=== PATIENT | male | born 1985 | race Caucasian/White ===

== ENCOUNTER 2022-06-26 13:53 | Emergency (ER) | payer BC, SELFPAY ==
[2022-06-26 14:10] VITALS: BP 133/91; PULSE 98; RESP 18; TEMP 36.6; O2SAT 100
--- NOTE | 2022-06-26 14:22 | ED.URI ---
HPI - URI/Sore Throat General Chief Complaint: Upper Respiratory Infection Stated Complaint: Sinus Pressure, Congestion, Fatique Time Seen by Provider: 06/26/22 14:26 Source: patient and RN notes reviewed Mode of arrival: ambulatory Limitations: no limitations History of Present Illness HPI Narrative: 37 y/o male presented for c/o sinus pressure, congestion with post nasal drip, cough and fatigue for 3 days. Started taking Ruhtie D for symptoms. Denies sob, wheezing, n/v/d/f/c. Denies sick contacts. History of seasonal allergies. He is scheduled with pcp 07/04. MD elicited complaint: cough Related Data Allergies Allergy/AdvReac Type Severity Reaction Status Date / Time erythromycin base AdvReac Mild Nausea Verified 06/26/22 14:25 Review of Systems Review of Systems: CONSTITUTIONAL:denies chills, sweats, fever EYES: Denies visual changes, redness, or discharge ENT: Reports rhinorrhea, congestion, sinus pain, denies otalgia, sore throat CARDIOVASCULAR: Denies chest pain, palpitations, edema RESPIRATORY: Reports cough, post nasal drainage. Denies dyspnea GASTROINTESTINAL: Denies abdominal pain, nausea, vomiting, diarrhea SKIN: Denies rash or itching MUSCULOSKELETAL: denies myalgia Exam Narrative: GENERAL: Ill-appearing, nontoxic EYES: conjunctivae clear ENT: Mucous membranes moist. TM pearly leo with dull light reflex bilaterally; no tragal tenderness. Oropharynx erythematous without lesions or exudate, no drooling, no hoarseness, no trismus, uvula midline. CHEST: Clear to auscultation, breath sounds equal. No respiratory distress, speaks in full sentences. HEART: Regular rate and rhythm. No murmur heard. SKIN: Warm, dry, no rash. NEURO: Alert and oriented x3. Course Course Emergency Course: Patient is aware of diagnosis, understands and agrees to treatment plan. Anticipatory guidance given. Patient agrees to follow-up as directed and is aware of reasons to seek care at the emergency department. Portions of this record may have been created with voice recognition software Level of Care: Express Care Visit Vital Signs Vital signs: Vital Signs Temperature 97.8 F 06/26/22 14:10 Pulse Rate 98 06/26/22 14:10 Respiratory Rate 18 06/26/22 14:10 Blood Pressure 133/91 H 06/26/22 14:10 Pulse Oximetry 100 06/26/22 14:10 Oxygen Delivery Room Air 06/26/22 14:10 Temperature 97.8 F 06/26/22 14:10 Pulse Rate 98 06/26/22 14:10 Respiratory Rate 18 06/26/22 14:10 Blood Pressure 133/91 H 06/26/22 14:10 Pulse Oximetry 100 06/26/22 14:10 Oxygen Delivery Room Air 06/26/22 14:10 reviewed MDM - URI/Sore Throat MDM Narrative Medical decision making narrative: covid negative. Result reviewed with pt. advised supportive measures and signs/symptoms to go to the ER. Pt is appropriate for outpt treatment and f/u as scheduled with pcp. Differential Diagnosis Differential diagnosis: Likely upper respiratory infection, sinusitis and viral infection Discharge Plan Discharge Clinical Impression: Upper respiratory infection Patient Disposition: Home, Self-Care Condition: Stable Instructions: Upper Respiratory Infection (ED) Additional Instructions: Your Rapid COVID test was negative today. If you are symptomatic with reason to believe you have COVID-19, there is a high possibility your rapid test may not have detected the virus. You should follow appropriate guidelines regarding quarantine, hand washing, mask wearing, and social distancing Rest, stay hydrated. Tylenol, Flonase/nasal spray, Zyrtec, cough syrup and cold/flu medications for symptoms as needed Follow up with your primary care provider as needed in 1-2 weeks Go to the ER for worsening symptoms or concerns Prescriptions: New benzonatate 200 mg capsule 200 mg PO TID PRN (Reason: cough) Qty: 20 0RF methylprednisolone [Medrol (Helio)] 4 mg tablets,dose pack See Rx Instructions .ROUTE .COMPLEX Qty: 21 0RF
== END 2022-06-26 14:55 | disposition home or self-care (01) ==
PROVIDERS: Emergency Provider Nurse Practitioner Family; PCP Internal Medicine
DX: J06.9 Acute upper respiratory infection, unspecified (principal); Z20.822 Contact with and (suspected) exposure to COVID-19
CPT/HCPCS: 87426; 99213; C9803; G0463

== ENCOUNTER 2023-04-30 14:05 | Emergency (ER) | payer BC, SELFPAY ==
[2023-04-30] VITALS (12 sets, daily range): BP systolic 125–142; BP diastolic 76–93; PULSE 75–86; RESP 14–29; TEMP 36.6; O2SAT 92–100
--- NOTE | ~2023-04-30 | XR_ITS ---
EXAMINATION: XR chest 2V DATE: 04/30/2023 14:39 INDICATION: Midsternal chest pain TECHNIQUE: PA and lateral views of the chest are obtained. COMPARISON: 12/05/2010 FINDINGS: The lungs are free of acute opacities. No pleural effusion or pneumothorax. The cardiomedia stinal silhouette is normal. There are changes of interval plate and screw fixation of the distal lef t clavicle. IMPRESSION: 1. No acute cardiopulmonary abnormality. Reviewed, dictated and finalized at location L.
--- NOTE | 2023-04-30 14:07 | ECG_ITS ---
Measurements Intervals [place] Rate: 80 P: 32 WV: 178 QRS: -15 QRSD: 102 T: 19 QT: 360 QTc: 418 Interpretive Statements SINUS RHYTHM MODERATE VOLTAGE CRITERIA FOR LVH, CONSIDER NORMAL VARIANT [MEETS CRITERIA IN ONE OF: R(aVL), S(V1), R(V5), R(V5/V6)+S(V1)] POSSIBLE ANTERIOR MYOCARDIAL INFARCTION , OF INDETERMINATE AGE [30 ms Q WAVE IN V3/V4, OR R < 0.2 mV IN V4] ABNORMAL ECG Electronically Signed On 05-01-2023 11:52:04 CDT by Suhas Kuo M.D.
[2023-04-30 14:38] LABS: Basophils Absolute Auto 0.1 K/mm3 (0.0-0.1); Basophils Percent Auto 0.6 % (0.2-1.2); Eosinophils Percent Auto 0.3 % (0-4.4); Hemoglobin 15.6 g/dL (14.0-18.0); Immature Granulocyte Absolute 0.09 K/mm3 (0.00-0.031); Immature Granulocyte Percent A 0.6 % (0-0.5); Lymphocytes Absolute Auto 1.84 K/mm3 (0.9-3.2); Mean Corpuscular HGB Conc 33.2 g/dl (32-36); Mean Corpuscular Hemoglobin 29.8 pg (26-34); Mean Corpuscular Volume 89.9 fl (80-100); Mean Platelet Volume 9.8 fl (7.4-10.4); Monocytes Absolute Auto 0.6 K/mm3 (0.1-0.6); Monocytes Percent Auto 4.5 % (2.6-8.5); Neutrophils Absolute Auto 11.5 K/mm3 (1.3-6.7); Platelet Count Result 256 k/mm3 (150-375); Red Blood Count 5.23 M/mm3 (4.6-6.20); Red Cell Distribution Width 13.2 % (11.5-14.5); White Blood Count 14.2 K/mm3 (4.5-10.0)
[2023-04-30 14:47] LABS: Alanine Aminotransferase 40 U/L (6-50); Albumin Level 4.5 g/dL (3.5-5.1); Alkaline Phosphatase 30 U/L (38-126); Anion Gap 7 mmol/L (8-16); Aspartate Amino Transferase 33 U/L (17-59); Bilirubin,Total 0.5 mg/dL (0.2-1.3); Blood Urea Nitrogen 20 mg/dL (9-20); Calcium 9.1 mg/dL (8.4-10.2); Carbon Dioxide 27 mmol/L (22-30); Chloride 103 mmol/L (98-107); Estimated CRCL calculation 129 ml/min; Estimated Glomerular Filt Rate > 60; Glucose 132 mg/dL (65-110); Lipase 120 U/L (23-300); Sodium 137 mmol/L (137-145)
[2023-04-30 14:53] LABS: INR 0.9; Partial Thromboplastin Time 26.4 SECONDS (22.3-36.8); Prothrombin Time 12.8 Seconds (11.1-14.7)
[2023-04-30 14:58] LABS: Troponin I < 0.012 ng/mL (0.000-0.034)
[2023-04-30] MEDS: ALBUTEROL SULFATE (*SP) AEROSOL 1 PUFF 2 PUFF INHALATION (15:18)
[2023-04-30] MEDS: ONDANSETRON INJ 4 MG/2 ML VIAL IV PUSH (15:33)
[2023-04-30] MEDS: FAMOTIDINE 20 MG/2 ML VIAL IV PUSH (15:34)
[2023-04-30 15:56] LABS: D Dimer < 0.27 ug/mL (<0.48)
[2023-04-30 17:28] LABS: Troponin I < 0.012 ng/mL (0.000-0.034)
--- NOTE | 2023-04-30 18:15 | ED.GENADULT ---
HPI - General Adult General Chief complaint: Chest Pain Stated complaint: chest pain Time Seen by Provider: 04/30/23 14:40 History of Present Illness HPI narrative: Shakeel Davis is a 37 y/o male who presents today with reports of having epigastric / chest pain that started 3 days ago. He reports it comes and goes and feels like a nauseated feeling that goes up in to his chest at times. He denies knowing of anything that makes his pain better or worse. Denies fever/chills, denies vomiting. Last BM was yesterday no gross blood. Related Data Allergies Allergy/AdvReac Type Severity Reaction Status Date / Time erythromycin base AdvReac Mild Nausea Verified 11/13/22 08:02 Review of Systems Review of Systems: CONSTITUTIONAL: Denies fever, chills, or sweats. EYES: Denies visual changes, redness, or discharge. ENT: Denies rhinorrhea, congestion, sore throat, or otalgia. CARDIOVASCULAR: Reports of intermittent chest pain that started 3 days ago RESPIRATORY: Denies cough or dyspnea. GASTROINTESTINAL: Reports epigastric nausea pain, No abdominal pain, reports some nausea, denies vomiting, or diarrhea. GENITOURINARY: Denies dysuria or hematuria. SKIN: Denies rash or itching. MUSCULOSKELETAL: Denies back pain, joint pain, or myalgia. NEUROLOGIC: Denies headache, numbness, dizziness, or weakness. PSYCHIATRIC: Denies anxiety or depression. [facility] Past Medical History Medical History AB (asthmatic bronchitis) LIZZIE (obstructive sleep apnea) Seasonal allergies Family History Family History Grandparent Diabetes mellitus Social History Social History Smoking status: Never smoker Alcohol intake: current Substance use: never Exam Narrative: GENERAL: Well-appearing, well-nourished, and in no acute distress. HEAD: Normocephalic, atraumatic. EYES: PERRLA and EOMI. ENT: Nares clear, no rhinorrhea or epistaxis. Mucous membranes moist. Oropharynx without tonsillar hypertrophy exudate or other lesions. NECK: Supple. No adenopathy or masses. No carotid bruits or JVD CHEST: Clear to auscultation. No respiratory distress. No wheezes rales or rhonchi HEART: Regular rate and rhythm. No murmur heard. Normal peripheral pulses. ABDOMEN: Soft, nontender, nondistended, normal active bowel sounds. EXTREMITIES: Normal range of motion. No edema. SKIN: Warm, dry, no rash. NEURO: No focal deficits. Alert and oriented x3. PSYCH: Normal mood and affect. Course Vital Signs Vital signs: Vital Signs Temperature 36.6 C 04/30/23 14:11 Pulse Rate 84 04/30/23 14:11 Respiratory Rate 16 04/30/23 14:11 Blood Pressure 142/93 H 04/30/23 14:11 Pulse Oximetry 100 04/30/23 14:11 Temperature 36.6 C 04/30/23 14:11 Pulse Rate 75 04/30/23 18:27 Respiratory Rate 22 H 04/30/23 18:27 Blood Pressure 129/86 04/30/23 18:27 Pulse Oximetry 96 04/30/23 18:27 Vitals reviewed by me. Medical Decision Making MDM Narrative Medical decision making narrative: Patient describes his pain as chest pain so a cardiac work up was started, after further talking with him it is described more like epigastric pain that moves up to his chest that has been waxing and weaning for the past 3 days. He states that the pain that moves up to his chest feels kind of tight- he has history of asthma when he was younger but has not used any inhalers for several years- his lung sounds are clear to diminished no wheezing noted NO nausea/vomiting No palpable abdominal pain in any of the quadrants Normal Bowel sounds throughout Cardiac work up is negative with two negative trops. DDimer negative electrolytes stable, slightly elevated wbc Chest x ray clear Patient medicated with zofran/famotidine - which improved his symptoms we tried an albuterol inhaler to see if that changed anything
== END 2023-04-30 18:28 | disposition home or self-care (01) ==
PROVIDERS: Emergency Medicine; Emergency Provider Nurse Practitioner Family
DX: K29.70 Gastritis, unspecified, without bleeding (principal); K21.9 Gastro-esophageal reflux disease without esophagitis
CPT/HCPCS: 36415; 71046; 80053; 83690; 84484; 85025; 85380; 85610; 85730; 93005; 94664; 96374; 96375; 99284; A9270; J2405

== ENCOUNTER 2023-10-12 07:58 | Emergency (ER) | payer BC, SELFPAY ==
--- NOTE | ~2023-10-12 | XR_ITS ---
EXAMINATION: XR chest 1V portable INDICATION: Shortness of breath, chest pain with inspiration TECHNIQUE: Portable AP chest at 0901 hours COMPARISON: 04/30/2023 FINDINGS: The lungs are free of acute opacities. No pleural effusion or pneumothorax. The cardiomedia stinal silhouette is normal. Again noted is plate and screw fixation of the left clavicle. There are healed left-sided rib fractures. IMPRESSION: 1. No acute cardiopulmonary abnormality. Reviewed, dictated and finalized at location F. [employer]ST
[2023-10-12 08:21] VITALS: BP 157/86; PULSE 99; RESP 20; TEMP 38.1; O2SAT 100
[2023-10-12] MEDS: ALBUTEROL SULFATE NEB 2.5 MG/3 ML INH INHALATION (08:45)
[2023-10-12] MEDS: ACETAMINOPHEN 500 MG TABLET 1000 MG PO (08:46)
[2023-10-12 08:48] VITALS: PULSE 95; RESP 14
[2023-10-12 08:56] LABS: Strep Group A RT-PCR NOT DETECTED (Negative)
[2023-10-12 09:07] LABS: Influenza A QL RT-PCR Positive (Negative); Influenza B QL RT-PCR Negative (Negative); RSV RNA, RT-PCR Negative (Negative); SARS-CoV-2 RNA PCR Positive (Negative)
[2023-10-12 10:41] VITALS: BP 134/79; PULSE 91; RESP 21; TEMP 37.1; O2SAT 95
--- NOTE | 2023-10-12 10:56 | ED.URI ---
HPI - URI/Sore Throat General Chief Complaint: Upper Respiratory Infection Stated Complaint: body aches, sore throat Time Seen by Provider: 10/12/23 08:24 History of Present Illness HPI Narrative: This is a 38-year-old male, who denies significant past medical history, presents to the emergency department complaining of fatigue, malaise and cough productive of some mucus without blood for the past 2 days. The patient states his son had similar symptoms though recovered. He has no other complaints at this time. Related Data Allergies Allergy/AdvReac Type Severity Reaction Status Date / Time erythromycin base AdvReac Mild Nausea Verified 11/13/22 08:02 Review of Systems Review of Systems: CONSTITUTIONAL: Subjective fevers Denies chills, or sweats. ENT: Rhinorrhea, congestion, Denies sore throat, or otalgia. CARDIOVASCULAR: Denies chest pain, palpitations, or edema. RESPIRATORY: Cough productive of mucus without blood Denies dyspnea. GASTROINTESTINAL: Denies abdominal pain, nausea, vomiting, or diarrhea. SKIN: Denies rash or itching. MUSCULOSKELETAL: Diffuse myalgias Denies back pain, joint pain NEUROLOGIC: Denies headache, numbness, dizziness, or weakness. PSYCHIATRIC: Denies anxiety or depression. PMFSH Past Medical History Medical History AB (asthmatic bronchitis) LIZZIE (obstructive sleep apnea) Seasonal allergies Family History Family History Grandparent Diabetes mellitus Social History Social History Smoking status: Never smoker Alcohol intake: current Substance use: never Exam Narrative: GENERAL: Well-developed, well-nourished, and in no acute distress. HEAD: Normocephalic, atraumatic. EYES: PERRLA and EOMI. ENT: Nares clear, no rhinorrhea or epistaxis. Mucous membranes moist. Oropharynx without tonsillar hypertrophy exudate or other lesions. CHEST: Clear to auscultation. No respiratory distress. No wheezes rales or rhonchi HEART: Regular rate and rhythm. No murmur heard. Normal peripheral pulses. ABDOMEN: Soft, nontender, nondistended, normal active bowel sounds. EXTREMITIES: Normal range of motion. No edema. SKIN: Warm, dry, no rash. NEURO: Alert and oriented x3. No focal deficit. Moving all 4 limbs spontaneously PSYCH: Normal mood and affect. Course Course Emergency Course: 10:50 - The patient was positive for influenza a and COVID. Vital signs are within normal limits. Will discharge with recommendation for conservative management. Discussed return and emergency precautions including signs/symptoms of ACS and respiratory distress. The patient voiced understanding and is comfortable with the plan. All questions answered to his satisfaction. Vital Signs Vital signs: Vital Signs Temperature 100.6 F H 10/12/23 08:21 Pulse Rate 99 10/12/23 08:21 Respiratory Rate 20 10/12/23 08:21 Blood Pressure 157/86 H 10/12/23 08:21 Pulse Oximetry 100 10/12/23 08:21 Temperature 98.8 F 10/12/23 10:41 Pulse Rate 88 10/12/23 11:33 Respiratory Rate 24 H 10/12/23 11:33 Blood Pressure 125/82 10/12/23 11:33 Pulse Oximetry 97 10/12/23 11:33 MDM - URI/Sore Throat MDM Narrative Medical decision making narrative: reassessPlan: Labs, pain control Differential Diagnosis Differential diagnosis: Likely upper respiratory infection, viral infection, influenza and other ( COVID, strep pharyngitis, other) Lab Data Labs: Lab Results 10/12/23 Range/Units 08:20 Influenza A (RT-PCR) Positive A (Negative) Influenza B (RT-PCR) Negative (Negative) RSV (RT-PCR) Negative (Negative) SARS-CoV-2 RNA (RT-PCR) Positive A (Negative) Group A Strep (PCR) Not detected (Negative) Discharge Plan Discharge Clinical Impression: COVID-19, Influenza A Patient Disposition: Home,
[2023-10-12 11:33] VITALS: BP 125/82; PULSE 88; RESP 24; O2SAT 97
== END 2023-10-12 11:34 | disposition home or self-care (01) ==
PROVIDERS: Emergency Provider Preventive Medicine Aerospace Medicine
DX: U07.1 COVID-19 (principal); J10.1 Influenza due to other identified influenza virus with other respiratory manifestations
CPT/HCPCS: 71045; 87637; 87651; 94640; 99283; A9270